=== PATIENT | female | born 1965 | race Hispanic/Latino ===

== ENCOUNTER 2017-06-19 15:28 | Emergency (ER) | payer OTHER ==
[~2017-06-19] VITALS: Ht 157.5 cm; Wt 78.8 kg
[2017-06-19 16:22] LABS: POINT-OF-CARE METER ID UU13113778
[2017-06-19 18:04] LABS: HEMATOCRIT 42.5 % (36.0-46.0); MCH 30.2 PG (29.0-34.0); MCHC 32.7 G/DL (30.0-36.0); MCV 92.2 FL (83-99); MEAN PLAT.VOLUME 10.4 uM^3 (9.5-12.4); PLATELET COUNT 251 K/uL (156-360); RBC DIS.WIDTH-CV 13.3 % (11.8-14.6); RBC DIS.WIDTH-SD 45.2 % (39-53); RED BLOOD COUNT 4.61 M/uL (3.80-5.20); WHITE BLOOD COUNT 8.1 K/uL (4.1-10.2)
[2017-06-19 18:13] LABS: CHLORIDE 101 mEq/L (99-109); POTASSIUM 3.5 mEq/L (3.7-5.4); SODIUM 139 mEq/L (136-147)
[2017-06-19 18:15] LABS: GLUCOSE 369 mg/dL (70-99)
[2017-06-19 18:16] LABS: ANION GAP 11 MEQ/L (2-14)
[2017-06-19 18:17] LABS: TOTAL BILIRUBIN 0.7 mg/dL (0.0-1.0)
[2017-06-19 18:19] LABS: ALKALINE PHOSPHATASE 98 IU/L (3-129); GFR ESTIMATE (CALCULATED) > 59 mL/min/
[2017-06-19 18:20] LABS: UREA NITROGEN (BUN) 19 mg/dL (9-23)
[2017-06-19 18:57] LABS: ADD MIUA? NO; BILIRUBIN NEGATIVE; BLOOD NEGATIVE; COLOR YELLOW ((YELLOW)); GLUCOSE (STRIP) >=500; KETONES 80; LEUKOCYTES NEGATIVE; NITRITE NEGATIVE; PROTEIN (STRIP) NEGATIVE; SPECIFIC GRAVITY 1.023 (1.000-1.030); UROBILINOGEN 0.2 MG/DL (0.2-1.0)
[2017-06-19] MEDS ORDERED: ULTRAM50 MG PO (20:26)
[2017-06-19 20:30] LABS: POINT-OF-CARE METER ID UU13113800
[2017-06-19 21:20] VITALS: BP 144/84
== END 2017-06-19 21:21 | disposition home or self-care (01) ==
LOC: EME 15:28
PROVIDERS: Nurse Practitioner Family
DX: M54.5 Low back pain (principal); R73.9 Hyperglycemia, unspecified; R42 Dizziness and giddiness; Z87.442 Personal history of urinary calculi
CPT/HCPCS: 74176; 80053; 81003; 82948; 83605; 85027; 93005; 99281; 99284; J1885; J7030